=== PATIENT | male | born 1970 | race Caucasian/White ===

== ENCOUNTER 2016-09-18 15:22 | Emergency (ER) | payer OTHER ==
[~2016-09-18] VITALS: Ht 182.9 cm; Wt 77.1 kg
[2016-09-18 15:24] VITALS: BP 132/85
[2016-09-18] MEDS ORDERED: KEFLEX500 MG PO (16:20)
== END 2016-09-18 16:34 | disposition home or self-care (01) ==
LOC: ER 15:22
DX: S61.411A Laceration without foreign body of right hand, initial encounter (principal); W31.2XXA Contact with powered woodworking and forming machines, initial encounter; Y93.89 Activity, other specified; Y92.89 Other specified places as the place of occurrence of the external cause; Y99.8 Other external cause status

== ENCOUNTER 2016-09-24 14:00 | Emergency (ER) | payer OTHER ==
[~2016-09-24] VITALS: Ht 185.4 cm; Wt 79.4 kg
[~2016-09-24 14:00] MED LIST: KEFLEX500 MG PO
[2016-09-24 14:27] VITALS: BP 133/90
== END 2016-09-24 14:56 | disposition home or self-care (01) ==
LOC: ER 14:00
DX: S61.411D Laceration without foreign body of right hand, subsequent encounter (principal); F17.210 Nicotine dependence, cigarettes, uncomplicated; F10.99 Alcohol use, unspecified with unspecified alcohol-induced disorder; X58.XXXD Exposure to other specified factors, subsequent encounter; Y92.89 Other specified places as the place of occurrence of the external cause; Y99.8 Other external cause status